=== PATIENT | male | born 1995 | race Caucasian/White ===

== ENCOUNTER 2016-09-06 15:03 | Emergency (ER) | payer OTHER ==
--- NOTE | ~2016-09-06 | CR126 ---
[facility]. [facility] A Service of [facility] & [facility] RADIOLOGY TEXT RESULTS PATIENT: TERRY LORENZO LOCATION: SED : 95 UNIT #: [id number] AGE: [address]: Any Argueta APRN SEX: M ORDER DR: [id number] [address] [address] [id number] E MR#: [id number] Acc #: [id number] NAME: TERRY LORENZO : 1995 SEX: M STUDY DATE/TIME: 09/06/2016 14:59 UNIT: SED ROOM: STUDY DESCRIPTION: CR Foot Complete Min 3 View Lt Attending Physician: Any Argueta A.P.R.N. Ordering Physician: Any Camara A.P.R.N. Primary Care Physician: Primary Care Physician No MEDICAL IMAGING REPORT This report is preliminary unless electronic signature is present. EXAM Left foot, 3 views HISTORY SUPPLIED Basketball injury last night. Lateral foot and ankle pain. FINDINGS 3 views of the left foot are submitted. Bony elements are intact. Joint spaces and articular surfaces are preserved. No fractures are seen. CONCLUSION Negative. Dictated by... Colt Badillo M.D. THIS IS AN ELECTRONICALLY VERIFIED REPORT Colt Badillo M.D. at 09/08/2016 3:10 PM JAGDISH/primo TD: 09/06/2016 20:03 JOB #: [id number] MEDICAL IMAGING REPORT Page 1 of 1
--- NOTE | ~2016-09-06 | CR20 ---
[facility]. [facility] A Service of [facility] & [facility] / [facility] RADIOLOGY TEXT RESULTS PATIENT: TERRY LORENZO LOCATION: SED : 95 UNIT #: [id number] AGE: [address]: Any Argueta APRN SEX: M ORDER DR: [id number] [address] [address] [id number] E MR#: [id number] Acc #: [id number] NAME: TERRY LORENZO : 1995 SEX: M STUDY DATE/TIME: 09/06/2016 14:59 UNIT: SED ROOM: STUDY DESCRIPTION: CR Ankle Min 3 Views Lt Attending Physician: Any Argueta A.P.R.N. Ordering Physician: Any Camara A.P.R.N. Primary Care Physician: Primary Care Physician No MEDICAL IMAGING REPORT This report is preliminary unless electronic signature is present. EXAM Left ankle, 3 views HISTORY Basketball injury last night, ankle pain. FINDINGS 3 views are submitted. Bony elements are intact and in normal alignment. No fractures are identified. CONCLUSION Negative. Dictated by... Colt Badillo M.D. THIS IS AN ELECTRONICALLY VERIFIED REPORT Colt Badillo M.D. at 09/08/2016 3:10 PM JAGDISH/primo TD: 09/06/2016 20:09 JOB #: [id number] MEDICAL IMAGING REPORT Page 1 of 1
--- NOTE | ~2016-09-06 | CR230 ---
[facility]. [facility] A Service of [facility] & [facility] RADIOLOGY TEXT RESULTS PATIENT: TERRY LORENZO LOCATION: SED : 95 UNIT #: [id number] AGE: [address]: Any Argueta APRN SEX: M ORDER DR: [id number] [address] [address] [id number] E MR#: [id number] Acc #: [id number] NAME: TERRY LORENZO : 1995 SEX: M STUDY DATE/TIME: 09/06/2016 14:59 UNIT: SED ROOM: STUDY DESCRIPTION: CR Shoulder Min 2 View Rt Attending Physician: Any Argueta A.P.R.N. Ordering Physician: Any Camara A.P.R.N. Primary Care Physician: Primary Care Physician No MEDICAL IMAGING REPORT This report is preliminary unless electronic signature is present. EXAM Right shoulder 3 views, 09/06/2016 HISTORY SUPPLIED Shoulder pain, basketball injury last night. ow on hard knot right shoulder 3 views history supplied is shoulder pain. Basketball injury last night. FINDINGS 3 views of the right shoulder obtained. Bony elements appear intact. Joint space and articular surfaces are preserved. No fractures are identified. Dictated by... Colt Badillo M.D. THIS IS AN ELECTRONICALLY VERIFIED REPORT Colt Badillo M.D. at 09/08/2016 3:10 PM JAGDISH/heather TD: 09/06/2016 20:03 JOB #: [id number] MEDICAL IMAGING REPORT Page 1 of 1
[~2016-09-06 15:03] MED LIST: ALBUTEROL17 GM INH; AMOXICILLIN875 MG PO; BENZONATATE PO; ZITHROMAX PO
== END 2016-09-06 15:50 | disposition home or self-care (01) ==
LOC: SED 15:03
DX: S93.402A Sprain of unspecified ligament of left ankle, initial encounter (principal); S93.602A Unspecified sprain of left foot, initial encounter; S43.401A Unspecified sprain of right shoulder joint, initial encounter; S90.811A Abrasion, right foot, initial encounter; W21.05XA Struck by basketball, initial encounter; J45.909 Unspecified asthma, uncomplicated
CPT/HCPCS: 73030; 73610; 73630; 99284

== ENCOUNTER 2017-01-13 00:52 | Emergency (ER) | payer OTHER ==
[~2017-01-13] VITALS: Ht 182.9 cm; Wt 131.5 kg
--- NOTE | ~2017-01-13 | EKG ---
PATIENT: TERRY LORENZO UNIT #: [id number] Ventricular Rate: 74 BPM Atrial Rate: 74 BPM P-R Interval: 140 ms QRS Duration: 90 ms Q-T Interval: 374 ms QTC Calculation(Bezet): 415 ms P [place]: 34 degrees Calculated R [place]: -2 degrees Calculated T [place]: 24 degrees Diagnosis Line: Normal sinus rhythm Diagnosis Line: RSR' or QR pattern in V1 suggests right Diagnosis Line: ventricular conduction delay Diagnosis Line: Borderline ECG Diagnosis Line: When compared with ECG of 10-MAY-2010 22:14, Diagnosis Line: PREVIOUS ECG IS PRESENT Diagnosis Line: Confirmed by MILAGRO العلي MD ([id number]) on Diagnosis Line: 01/13/2017 1:36:20 PM INTERPRETING MD: SEVERIANO JAIN
[2017-01-13] MEDS ORDERED: NO MEDICATIONS (01:17)
[2017-01-13 02:57] LABS: AMPHETAMINE NEG (NEG); BARBITURATES NEG (NEG); BENZODIAZEPINES NEG (NEG); COCAINE NEG (NEG); MARIJUANA NEG (NEG); OPIATES NEG (NEG); TRICYCLIC ANTIDEPRESSANTS NEG (NEG); U METHADONE NEG (NEG)
[2017-01-13 03:18] LABS: BASOPHIL# 0.1 X10e3 (0-0.3); BASOPHIL% 0.6 % (0-2.5); EOSINOPHIL% 0.3 % (0.0-7.0); HEMATOCRIT 46.3 % (38.0-50.0); HEMOGLOBIN 15.7 gm/dL (13.0-16.0); LYMPHOCYTE# 2.4 X10e3 (1.0-3.5); LYMPHOCYTE% 22.3 % (17.0-45.0); MEAN CORPUSCULAR HEMOGLOBIN 29.3 PG (28-34); MEAN PLATELET VOLUME 8.4 FL (6.5-11.5); MONOCYTE# 0.7 X10e3 (0-1.0); MONOCYTE% 6.9 % (3.0-12.0); NEUTROPHIL# 7.4 X10e3 (1.5-7.1); NEUTROPHIL% 69.9 % (40-75); PLATELET COUNT 243 X10e3 (140-420); RED BLOOD COUNT 5.38 X10e (3.90-5.60); RED CELL DISTRIBUTION WIDTH 12.9 % (11.0-15.5); WHITE BLOOD COUNT 10.6 X10e3 (4.0-10.5)
[2017-01-13 03:21] LABS: DIFF IND NO
[2017-01-13 03:35] LABS: ALBUMIN SERUM 4.4 g/dL (3.5-5.0); ALKALINE PHOSPHATASE 69 U/L (32-92); ALT (SGPT) 27 U/L (10-40); AST (SGOT) 22 U/L (10-42); BILIRUBIN,TOTAL 0.5 mg/dL (0.2-2.0); BLOOD UREA NITROGEN 15 mg/dL (9-23); BUN/CREATININE RATIO 16.66; CALCIUM SERUM 9.2 mg/dL (8.4-10.2); CARBON DIOXIDE 26 mmol/L (22-31); CHLORIDE 102 mmol/L (100-111); CREATININE SERUM 0.9 mg/dL (0.6-1.4); GLOM FILT RATE Estimated 121.7 mL/min (>60); GLUCOSE FASTING 99 mg/dL (70-110); POTASSIUM 3.9 mmol/L (3.5-5.1); PROTEIN TOTAL SERUM 7.6 g/dL (6.0-8.3); SODIUM 136 mmol/L (135-145)
[2017-01-13 03:40] LABS: POC - CKMB 2.4 ng/mL (0.0-7.9); POC - TROPONIN <0.05 ng/mL (<=0.05)
[2017-01-13 03:45] LABS: BILIRUBIN, DIRECT <0.1 mg/dL (0.0-0.2); BILIRUBIN,INDIRECT 0.4 mg/dL (0.0-0.9)
[2017-03-16] MEDS ORDERED: HYDROCODON-ACE1 EAC9 (16:50)
[2017-03-16] MEDS ORDERED: IBUPROFEN800 MG (16:51)
== END 2017-01-13 04:18 | disposition home or self-care (01) ==
LOC: SED 00:52
PROVIDERS: Emergency Medicine
DX: R42 Dizziness and giddiness (principal); F41.9 Anxiety disorder, unspecified; J45.909 Unspecified asthma, uncomplicated
CPT/HCPCS: 36415; 80048; 80076; 80307; 82553; 84484; 85025; 93005; 96360; 99284